=== PATIENT | male | born 1945 | race Caucasian/White ===

== ENCOUNTER 2024-03-02 18:31 | Inpatient (IN) | payer OTHER ==
[2024-03-02 20:22] LABS: BASO % 0.7 % (0-2.0); EOS % 0.7 % (0-4.5); HEMATOCRIT 29.7 % (35.4-49); HEMOGLOBIN 10.3 GM/dL (11.7-16.9); LYMPH % 3.4 % (8-40); MCH 32.3 pg (25.7-33.7); MCHC 34.7 g/dl (32.0-35.9); MEAN CELL VOLUME 93.2 fl (80-96); MEAN PLT VOLUME 7.4 fl (7.5-11.1); NEUT % 88.2 % (42.8-82.8); PLATELET COUNT 157 10^3/uL (134-434); RBC 3.19 M/mm3 (4.00-5.60); RDW 14.6 % (11.9-15.9); WHITE BLOOD COUNT 12.2 K/mm3 (4.0-10.0)
[2024-03-02 20:36] LABS: INR 0.96 (0.83-1.09)
[2024-03-02] MEDS ORDERED: ACETAMINOPHEN INJECTION 100 ML IVPB ONE (20:38)
[2024-03-02 20:39] LABS: ACTIVATED PTT 34.8 SECONDS (25.2-36.5)
[2024-03-02] MEDS: ACETAMINOPHEN 1000 MG/100 ML BAG IVPB ONE (20:44)
[2024-03-02 20:52] LABS: CALCIUM 8.6 mg/dL (8.5-10.1)
[2024-03-02 20:53] LABS: ALBUMIN 3.5 g/dl (3.4-5.0); BLOOD UREA NITROGEN 27.1 mg/dL (7-18)
[2024-03-02 20:56] LABS: CREATININE 1.5 mg/dL (0.55-1.3)
[2024-03-02 20:57] LABS: BILIRUBIN,TOTAL 1.3 mg/dL (0.2-1)
[2024-03-02 20:58] LABS: TOT PROT 6.6 g/dl (6.4-8.2)
[2024-03-03 08:54] LABS: BASO % 0.2 % (0-2.0); EOS % 0.1 % (0-4.5); HEMATOCRIT 26.8 % (35.4-49); HEMOGLOBIN 9.3 GM/dL (11.7-16.9); LYMPH % 4.3 % (8-40); MCH 32.6 pg (25.7-33.7); MCHC 34.9 g/dl (32.0-35.9); MEAN CELL VOLUME 93.6 fl (80-96); MEAN PLT VOLUME 7.5 fl (7.5-11.1); MONO % 9.4 % (3.8-10.2); PLATELET COUNT 145 10^3/uL (134-434); RBC 2.86 M/mm3 (4.00-5.60); RDW 14.5 % (11.9-15.9); WHITE BLOOD COUNT 10.8 K/mm3 (4.0-10.0)
[2024-03-03 09:01] LABS: POTASSIUM 4.8 mmol/L (3.5-5.1)
[2024-03-03 09:02] LABS: CALCIUM 8.3 mg/dL (8.5-10.1)
[2024-03-03 09:03] LABS: BLOOD UREA NITROGEN 30.4 mg/dL (7-18)
[2024-03-03 09:06] LABS: CREATININE 1.2 mg/dL (0.55-1.3)
[2024-03-03] MEDS ORDERED: ACETAMINOPHEN 325 MG TABLET (FP) ONE (10:54)
[2024-03-03] MEDS: EZETIMIBE 10 MG TABLET (FP) PO SCH (11:12)
[2024-03-03] MEDS: APIXABAN 5 MG TABLET PO SCH (11:12)
[2024-03-03] MEDS: LISINOPRIL 5 MG TABLET PO SCH (11:12)
[2024-03-03] MEDS: PANTOPRAZOLE 20 MG TABLET PO SCH (11:12)
[2024-03-03] MEDS: METOPROLOL TARTRATE 50 MG TABLET (FP) PO SCH (11:12)
[2024-03-03] MEDS: FOLIC ACID 1 MG TABLET (FP) PO SCH (11:12)
[2024-03-03] MEDS ORDERED: clonazePAM 0.5 MG TABLET ONE ×2 (11:14→11:30)
[2024-03-03] MEDS: clonazePAM 0.5 MG TABLET PO SCH (11:15)
[2024-03-03] MEDS: DEXTROSE 5%-0.45% SALINE 1,000 ML IV SCH (11:15)
[2024-03-03] MEDS: ACETAMINOPHEN 325 MG TABLET (FP) PO PRN (11:15)
[2024-03-03 15:28] LABS: EPI CELLS 3 /uL (0-25.1); HYALINE CASTS 1 /uL (0-3.1); URINE APPEARANCE CLEAR; URINE BACTERIA 3 /uL (0-1359); URINE BILIRUBIN NEGATIVE (NEGATIVE); URINE COLOR YELLOW; URINE GLUCOSE (UA) NEGATIVE (NEGATIVE); URINE KETONE 1+ (NEGATIVE); URINE LEUK ESTERASE NEGATIVE (NEGATIVE); URINE NITRITE NEGATIVE (NEGATIVE); URINE PROTEIN 1+ (NEGATIVE); URINE RBC 13 /uL (0-23.9); URINE WBC 4 /uL (0-25.8)
[2024-03-03] MEDS: ATORVASTATIN CA 80 MG TABLET (FP) PO SCH (22:18)
[2024-03-04 07:30] LABS: POTASSIUM 4.6 mmol/L (3.5-5.1)
[2024-03-04 07:31] LABS: CALCIUM 8.2 mg/dL (8.5-10.1)
[2024-03-04 07:32] LABS: BLOOD UREA NITROGEN 39.5 mg/dL (7-18)
[2024-03-04 07:35] LABS: CREATININE 1.5 mg/dL (0.55-1.3)
[2024-03-04 07:37] LABS: BILIRUBIN,TOTAL 1.7 mg/dL (0.2-1); TOT PROT 5.6 g/dl (6.4-8.2)
[2024-03-04] MEDS ORDERED: DEXTROSE 5%-0.45% SALINE 1,000 ML IV SCH (10:30)
[2024-03-04 11:50] LABS: BASO % 0.1 % (0-2.0); EOS % 0.1 % (0-4.5); HEMATOCRIT 24.1 % (35.4-49); HEMOGLOBIN 8.3 GM/dL (11.7-16.9); LYMPH % 5.6 % (8-40); MCH 31.8 pg (25.7-33.7); MCHC 34.2 g/dl (32.0-35.9); MEAN CELL VOLUME 92.9 fl (80-96); MEAN PLT VOLUME 7.8 fl (7.5-11.1); MONO % 12.4 % (3.8-10.2); NEUT % 81.8 % (42.8-82.8); PLATELET COUNT 161 10^3/uL (134-434); RDW 14.6 % (11.9-15.9); WHITE BLOOD COUNT 10.4 K/mm3 (4.0-10.0)
[2024-03-04 12:13] LABS: POTASSIUM 4.4 mmol/L (3.5-5.1)
[2024-03-04 12:14] LABS: CALCIUM 7.8 mg/dL (8.5-10.1)
[2024-03-04 12:15] LABS: BLOOD UREA NITROGEN 41.5 mg/dL (7-18)
[2024-03-04 12:18] LABS: CREATININE 1.5 mg/dL (0.55-1.3)
[2024-03-04 14:00] VITALS: BMI 21.5
[2024-03-04 19:15] LABS: BASO % 0.2 % (0-2.0); EOS % 0.2 % (0-4.5); HEMATOCRIT 23.1 % (35.4-49); HEMOGLOBIN 7.8 GM/dL (11.7-16.9); MCH 31.7 pg (25.7-33.7); MCHC 33.8 g/dl (32.0-35.9); MEAN PLT VOLUME 7.7 fl (7.5-11.1); MONO % 11.6 % (3.8-10.2); PLATELET COUNT 152 10^3/uL (134-434); RBC 2.45 M/mm3 (4.00-5.60); RDW 14.8 % (11.9-15.9); WHITE BLOOD COUNT 12.1 K/mm3 (4.0-10.0)
[2024-03-04] MEDS ORDERED: ENOXAPARIN NA (PORCINE) 60 MG/0.6 ML DISP.SYRIN SQ SCH (22:00)
[2024-03-05 07:45] LABS: POTASSIUM 4.1 mmol/L (3.5-5.1)
[2024-03-05 07:51] LABS: BASO % 0.1 % (0-2.0); CALCIUM 8.2 mg/dL (8.5-10.1); EOS % 0.1 % (0-4.5); HEMATOCRIT 24.4 % (35.4-49); HEMOGLOBIN 8.3 GM/dL (11.7-16.9); LYMPH % 3.8 % (8-40); MCH 31.7 pg (25.7-33.7); MEAN CELL VOLUME 93.2 fl (80-96); MEAN PLT VOLUME 7.8 fl (7.5-11.1); MONO % 12.3 % (3.8-10.2); NEUT % 83.7 % (42.8-82.8); PLATELET COUNT 155 10^3/uL (134-434); RBC 2.62 M/mm3 (4.00-5.60); RDW 14.8 % (11.9-15.9); WHITE BLOOD COUNT 11.7 K/mm3 (4.0-10.0)
[2024-03-05 07:52] LABS: BLOOD UREA NITROGEN 46.6 mg/dL (7-18)
[2024-03-05 07:55] LABS: CREATININE 1.5 mg/dL (0.55-1.3)
[2024-03-05 17:49] LABS: BASO % 0.1 % (0-2.0); HEMATOCRIT 33.1 % (35.4-49); HEMOGLOBIN 11.1 GM/dL (11.7-16.9); LYMPH % 4.8 % (8-40); MCH 31.7 pg (25.7-33.7); MCHC 33.5 g/dl (32.0-35.9); MEAN CELL VOLUME 94.6 fl (80-96); MEAN PLT VOLUME 7.9 fl (7.5-11.1); MONO % 12.9 % (3.8-10.2); NEUT % 82.2 % (42.8-82.8); PLATELET COUNT 157 10^3/uL (134-434); RDW 14.5 % (11.9-15.9)
[2024-03-06 07:59] LABS: BASO % 0.2 % (0-2.0); EOS % 0.3 % (0-4.5); HEMATOCRIT 28.5 % (35.4-49); HEMOGLOBIN 9.8 GM/dL (11.7-16.9); LYMPH % 4.7 % (8-40); MCH 31.9 pg (25.7-33.7); MCHC 34.4 g/dl (32.0-35.9); MEAN CELL VOLUME 92.6 fl (80-96); MEAN PLT VOLUME 7.2 fl (7.5-11.1); MONO % 12.2 % (3.8-10.2); NEUT % 82.6 % (42.8-82.8); PLATELET COUNT 167 10^3/uL (134-434); RBC 3.07 M/mm3 (4.00-5.60); RDW 14.6 % (11.9-15.9)
[2024-03-06 08:15] LABS: POTASSIUM 3.9 mmol/L (3.5-5.1)
[2024-03-06 08:18] LABS: CALCIUM 8.2 mg/dL (8.5-10.1)
[2024-03-06 08:19] LABS: BLOOD UREA NITROGEN 42.7 mg/dL (7-18)
[2024-03-06 08:21] LABS: CREATININE 1.3 mg/dL (0.55-1.3)
[2024-03-06 08:23] LABS: BILIRUBIN,TOTAL 2.6 mg/dL (0.2-1)
[2024-03-06] MEDS: DEXTROSE 5%-0.45% SALINE 1,000 ML IV SCH (16:27)
[2024-03-06 20:26] LABS: EOS % 0.8 % (0-4.5); HEMOGLOBIN 10.2 GM/dL (11.7-16.9); LYMPH % 4.2 % (8-40); MCH 32.5 pg (25.7-33.7); MEAN CELL VOLUME 92.8 fl (80-96); MEAN PLT VOLUME 7.5 fl (7.5-11.1); MONO % 11.1 % (3.8-10.2); NEUT % 83.9 % (42.8-82.8); PLATELET COUNT 173 10^3/uL (134-434); RBC 3.13 M/mm3 (4.00-5.60); RDW 14.8 % (11.9-15.9); WHITE BLOOD COUNT 10.6 K/mm3 (4.0-10.0)
[2024-03-07 09:12] LABS: BASO % 0.1 % (0-2.0); HEMATOCRIT 28.9 % (35.4-49); HEMOGLOBIN 9.9 GM/dL (11.7-16.9); LYMPH % 4.7 % (8-40); MCH 31.6 pg (25.7-33.7); MCHC 34.2 g/dl (32.0-35.9); MEAN CELL VOLUME 92.4 fl (80-96); MEAN PLT VOLUME 7.5 fl (7.5-11.1); MONO % 10.4 % (3.8-10.2); NEUT % 83.8 % (42.8-82.8); PLATELET COUNT 194 10^3/uL (134-434); RBC 3.12 M/mm3 (4.00-5.60); RDW 14.4 % (11.9-15.9); WHITE BLOOD COUNT 11.5 K/mm3 (4.0-10.0)
[2024-03-07 09:55] LABS: CALCIUM 8.6 mg/dL (8.5-10.1)
[2024-03-07 09:57] LABS: BLOOD UREA NITROGEN 45.7 mg/dL (7-18)
[2024-03-07 09:59] LABS: CREATININE 1.3 mg/dL (0.55-1.3)
[2024-03-07] MEDS: APIXABAN 5 MG TABLET PO SCH (10:03)
[2024-03-07] MEDS: FUROSEMIDE 40 MG TABLET (FP) PO SCH (10:04)
[2024-03-08 14:46] VITALS: BP 105/63; PULSE 70; RESP 18; TEMP 98.5
== END 2024-03-08 14:58 | DRG 563 ==
LOC: JER 18:31 → JERBED 03-03 00:05 → OBSVTOIN 03-03 13:48 → J7W 03-03 17:33
PROVIDERS: ADMIT Internal Medicine; ATTEND Internal Medicine
DX: S42.291A Other displaced fracture of upper end of right humerus, initial encounter for closed fracture (principal); F84.0 Autistic disorder; I13.0 Hypertensive heart and chronic kidney disease with heart failure and stage 1 through stage 4 chronic kidney disease, or unspecified chronic kidney disease; I25.10 Atherosclerotic heart disease of native coronary artery without angina pectoris; E78.5 Hyperlipidemia, unspecified; I48.91 Unspecified atrial fibrillation; I50.9 Heart failure, unspecified; E10.22 Type 1 diabetes mellitus with diabetic chronic kidney disease; N18.30 Chronic kidney disease, stage 3 unspecified; R29.6 Repeated falls; I25.5 Ischemic cardiomyopathy; D50.0 Iron deficiency anemia secondary to blood loss (chronic); W00.9XXA Unspecified fall due to ice and snow, initial encounter; Y92.89 Other specified places as the place of occurrence of the external cause; Y99.9 Unspecified external cause status; Z95.1 Presence of aortocoronary bypass graft
CPT/HCPCS: 0241U-QW; 36415; 36430; 70450-TC; 71045-TC-FY; 72125-TC; 72170-TC-FY; 73030-TC-RT-FY; 73200-TC-RT; 76775-TC; 80048; 80053; 81003; 82550; 84484; 85025; 85610; 85730; 86850; 86870; 86880; 86900; 86901; 86902; 86922; 87086; 93005; 93010; 93306-TC; 99285-25; G0378; J0131; P9058

== ENCOUNTER 2024-03-12 13:38 | Emergency (ER) | payer OTHER, MEDICARE ==
[2024-03-12 13:59] VITALS: RESP 18; BMI 24.4
[2024-03-12 14:20] LABS: EPI CELLS 5 /uL (0-25.1); HYALINE CASTS 1 /uL (0-3.1); URINE APPEARANCE CLOUDY; URINE BACTERIA 13 /uL (0-1359); URINE BILIRUBIN 1+ (NEGATIVE); URINE COLOR ORANGE; URINE GLUCOSE (UA) NEGATIVE (NEGATIVE); URINE KETONE NEGATIVE (NEGATIVE); URINE LEUK ESTERASE 1+ (NEGATIVE); URINE NITRITE NEGATIVE (NEGATIVE); URINE PROTEIN 1+ (NEGATIVE); URINE RBC 8721 /uL (0-23.9); URINE WBC 83 /uL (0-25.8)
[2024-03-12 19:24] VITALS: BP 138/43; PULSE 90; TEMP 98.5
== END 2024-03-12 19:28 | disposition home or self-care (01) ==
LOC: JER 13:38
PROC: 0T9B70Z Drainage of Bladder with Drainage Device, Via Natural or Artificial Opening (ICD-10-PCS; principal; 2024-03-12)
DX: R33.9 Retention of urine, unspecified (principal)
CPT/HCPCS: 81003; 87086; 99283-25

== ENCOUNTER 2024-03-13 15:16 | Emergency (ER) | payer OTHER, MEDICARE ==
[2024-03-13 15:43] VITALS: BP 112/61; PULSE 82; RESP 16; TEMP 98.3; BMI 29.2
[2024-03-13 17:11] LABS: EPI CELLS 0 /uL (0-25.1); HYALINE CASTS 0 /uL (0-3.1); URINE APPEARANCE CLOUDY; URINE BACTERIA 0 /uL (0-1359); URINE BILIRUBIN 1+ (NEGATIVE); URINE COLOR RED; URINE GLUCOSE (UA) NEGATIVE (NEGATIVE); URINE KETONE NEGATIVE (NEGATIVE); URINE LEUK ESTERASE 1+ (NEGATIVE); URINE NITRITE NEGATIVE (NEGATIVE); URINE PROTEIN 3+ (NEGATIVE); URINE RBC 14575 /uL (0-23.9); URINE WBC 27 /uL (0-25.8)
[2024-03-13 18:01] LABS: BASO % 0.2 % (0-2.0); EOS % 0.8 % (0-4.5); HEMATOCRIT 28.1 % (35.4-49); HEMOGLOBIN 9.3 GM/dL (11.7-16.9); MCH 31.1 pg (25.7-33.7); MCHC 33.1 g/dl (32.0-35.9); MEAN CELL VOLUME 94.1 fl (80-96); MEAN PLT VOLUME 7.1 fl (7.5-11.1); MONO % 9.5 % (3.8-10.2); NEUT % 87.5 % (42.8-82.8); PLATELET COUNT 327 10^3/uL (134-434); RBC 2.99 M/mm3 (4.00-5.60); RDW 14.9 % (11.9-15.9); WHITE BLOOD COUNT 15.5 K/mm3 (4.0-10.0)
[2024-03-13] MEDS: LIDOCAINE HCL 2% JELLY 10 ML CARTRIDGE UR ONE (18:30)
== END 2024-03-13 21:55 ==
LOC: JER 15:16
PROC: 0T2BX0Z Change Drainage Device in Bladder, External Approach (ICD-10-PCS; principal; 2024-03-13)
DX: R31.0 Gross hematuria (principal); R33.9 Retention of urine, unspecified
CPT/HCPCS: 36415; 81003; 85025; 87086; 99283-25

== ENCOUNTER 2025-02-07 12:17 | Inpatient (IN) | payer OTHER, MEDICARE ==
[2025-02-07 13:31] LABS: BASOPHILS # 0.01 x10^3/uL (0.01-0.08); EOSINOPHIL % 0.2 % (0.8-7.0); EOSINOPHILS # 0.01 x10^3/uL (0.04-0.54)
[2025-02-07 13:32] LABS: ABSOLUTE IMMATURE GRANULOCYTES 0.02 x10^3/uL (0.0-0.031); HEMATOCRIT 18.5 % (40.1-51.0); HEMOGLOBIN 5.1 g/dL (13.7-17.5); MCHC 27.6 g/dl (32.3-36.5); MEAN CELL VOLUME 91.6 fl (79.0-92.2); MEAN PLT VOLUME 11.5 fl (9.4-12.4); MONOCYTE # 0.52 x10^3/uL (0.30-0.82); MONOCYTE % 12.4 % (5.3-12.2); PLATELET COUNT 119 x10^3/uL (163-337)
[2025-02-07 13:38] LABS: INR 2.79 (0.83-1.09); PROTHROMBIN TIME (PATIENT) 30.4 SEC (9.7-13.0)
[2025-02-07 13:41] LABS: ACTIVATED PTT 41.8 SECONDS (25.2-36.5)
[2025-02-07 13:53] LABS: POTASSIUM 3.9 mmol/L (3.5-5.1)
[2025-02-07 13:57] LABS: CALCIUM 9.1 mg/dL (8.5-10.1)
[2025-02-07 13:58] LABS: BLOOD UREA NITROGEN 46.2 mg/dL (7-18)
[2025-02-07 14:01] LABS: CREATININE 1.6 mg/dL (0.55-1.3)
[2025-02-07 14:02] LABS: BILIRUBIN,TOTAL 1.5 mg/dL (0.2-1); TOT PROT 5.8 g/dl (6.4-8.2)
[2025-02-07 18:40] VITALS: RESP 18
[2025-02-07 22:02] LABS: HEMOGLOBIN 6.7 g/dL (13.7-17.5)
[2025-02-07 22:04] LABS: HEMATOCRIT 23.3 % (40.1-51.0); MCHC 28.8 g/dl (32.3-36.5); MEAN CELL VOLUME 89.6 fl (79.0-92.2); MEAN PLT VOLUME 11.3 fl (9.4-12.4); PLATELET COUNT 111 x10^3/uL (163-337); RDW 16.3 % (12.2-16.6)
[2025-02-07] MEDS: TAMSULOSIN HCL 0.4 MG CAP PO SCH (22:41)
[2025-02-07] MEDS: ATORVASTATIN CA 80 MG TABLET (FP) PO SCH (22:41)
[2025-02-07] MEDS: PANTOPRAZOLE SODIUM 40 MG VIAL IVPUSH SCH (22:41)
[2025-02-07] MEDS: MIRTAZAPINE 15 MG TABLET (FP) PO SCH (22:41)
[2025-02-08 07:43] LABS: HEMOGLOBIN 8.3 g/dL (13.7-17.5); MCHC 30.7 g/dl (32.3-36.5); MEAN CELL VOLUME 86.8 fl (79.0-92.2); MEAN PLT VOLUME 11.5 fl (9.4-12.4); PLATELET COUNT 126 x10^3/uL (163-337); RDW 16.3 % (12.2-16.6)
[2025-02-08 08:04] LABS: POTASSIUM 4.1 mmol/L (3.5-5.1)
[2025-02-08 08:43] LABS: ALBUMIN 2.9 g/dl (3.4-5.0); CALCIUM 9.1 mg/dL (8.5-10.1)
[2025-02-08 08:46] LABS: PHOSPHOROUS 4.4 mg/dL (2.5-4.9)
[2025-02-08 08:47] LABS: BILIRUBIN,TOTAL 3.3 mg/dL (0.2-1); CREATININE 1.5 mg/dL (0.55-1.3); TOT PROT 5.5 g/dl (6.4-8.2)
[2025-02-08 09:01] LABS: MAGNESIUM 2.7 mg/dL (1.8-2.4)
[2025-02-08] MEDS: FINASTERIDE 5 MG TABLET (FP) PO SCH (09:53)
[2025-02-08] MEDS: EZETIMIBE 10 MG TABLET (FP) PO SCH (11:10)
[2025-02-08 12:15] LABS: BILIRUBIN,DIRECT 0.7 mg/dL (0.0-0.2)
[2025-02-08] MEDS: PHYTONADIONE 10 MG/1 ML AMP IVPB ONE (12:58)
[2025-02-08 13:51] LABS: INR 1.66 (0.83-1.09); PROTHROMBIN TIME (PATIENT) 18.3 SEC (9.7-13.0)
[2025-02-08 14:47] VITALS: TEMP 97.3
[2025-02-08 16:03] VITALS: BMI 15.5
[2025-02-08 20:17] VITALS: BP 116/66; PULSE 75
[2025-02-08] MEDS ORDERED: EZETIMIBE 10 MG TABLET (FP) PO SCH (22:00)
== END 2025-02-08 20:00 | disposition short-term general hospital (02) | DRG 812 ==
LOC: JER 12:17 → JERBED 14:45 → J7W 21:55
PROVIDERS: ATTEND Internal Medicine
PROC: 30233N1 Transfusion of Nonautologous Red Blood Cells into Peripheral Vein, Percutaneous Approach (ICD-10-PCS; principal; 2025-02-07)
DX: D64.9 Anemia, unspecified (principal); I50.22 Chronic systolic (congestive) heart failure; I13.0 Hypertensive heart and chronic kidney disease with heart failure and stage 1 through stage 4 chronic kidney disease, or unspecified chronic kidney disease; F84.0 Autistic disorder; Z68.1 Body mass index [BMI] 19.9 or less, adult; D69.6 Thrombocytopenia, unspecified; I25.10 Atherosclerotic heart disease of native coronary artery without angina pectoris; N18.9 Chronic kidney disease, unspecified; E78.5 Hyperlipidemia, unspecified; N40.0 Benign prostatic hyperplasia without lower urinary tract symptoms; K74.60 Unspecified cirrhosis of liver; N18.30 Chronic kidney disease, stage 3 unspecified; E61.1 Iron deficiency; Z95.810 Presence of automatic (implantable) cardiac defibrillator
CPT/HCPCS: 36415; 36430; 71045-TC-FY; 76705-TC; 80053; 82248; 82272; 82728; 82977; 83540; 83550; 83735; 84100; 85025; 85027; 85610; 85730; 86850; 86870; 86880; 86900; 86901; 86902; 86922; 93005; 93010; 99285-25; P9038; P9058

== ENCOUNTER 2025-02-27 10:50 | Inpatient (IN) | payer OTHER, MEDICARE ==
[2025-02-27 12:01] LABS: BG HCT 22.0 % (35.4-49); VENOUS BASE EXCESS -0.6 mmol/L (-2-2); VENOUS O2 SATURATION 60.1 % (70-80); VENOUS PCO2 43.8 mmHg (38-52); VENOUS PH 7.369 (7.310-7.410)
[2025-02-27 12:11] LABS: BASOPHILS # 0.01 x10^3/uL (0.01-0.08); EOSINOPHILS # 0.05 x10^3/uL (0.04-0.54)
[2025-02-27 12:12] LABS: ABSOLUTE IMMATURE GRANULOCYTES 0.02 x10^3/uL (0.0-0.031); EOSINOPHIL % 0.9 % (0.8-7.0); IMMATURE PLATELET FRACTION # 3.00 x10^3/uL; MCHC 29.1 g/dl (32.3-36.5); MEAN CELL VOLUME 100.9 fl (79.0-92.2); MEAN PLT VOLUME 11.7 fl (9.4-12.4); MONOCYTE # 0.46 x10^3/uL (0.30-0.82); MONOCYTE % 8.0 % (5.3-12.2); RDW 22.8 % (12.2-16.6)
[2025-02-27 12:18] LABS: INR 2.25 (0.83-1.09); PROTHROMBIN TIME (PATIENT) 24.5 SEC (9.7-13.0)
[2025-02-27 12:21] LABS: ACTIVATED PTT 44.8 SECONDS (25.2-36.5)
[2025-02-27 12:52] LABS: CO2 26.0 mmol/L (21-32); GLUCOSE,RANDOM 149.0 mg/dL (74-106)
[2025-02-27 12:55] LABS: CREATININE 1.6 mg/dL (0.55-1.3); SGOT/AST 54.0 U/L (15-37); SGPT/ALT 59.0 U/L (13-61)
[2025-02-27 12:56] LABS: TOT PROT 5.4 g/dl (6.4-8.2)
[2025-02-27 12:58] LABS: ALK PHOS 217.0 U/L (45-117)
[2025-02-27 14:41] LABS: EPI CELLS 7 /uL (0-25.1); HYALINE CASTS 0 /uL (0-3.1); URINE APPEARANCE CLEAR; URINE BACTERIA 1 /uL (0-1359); URINE BILIRUBIN NEGATIVE (NEGATIVE); URINE COLOR YELLOW; URINE GLUCOSE (UA) NEGATIVE (NEGATIVE); URINE KETONE NEGATIVE (NEGATIVE); URINE LEUK ESTERASE NEGATIVE (NEGATIVE); URINE NITRITE NEGATIVE (NEGATIVE); URINE PROTEIN 1+ (NEGATIVE); URINE RBC 4 /uL (0-23.9); URINE UROBILINOGEN 4.0 E.U/dl mg/dL (0.2-1.0); URINE WBC 1 /uL (0-25.8)
[2025-02-27 14:47] LABS: EPI CELLS 4 /uL (0-25.1); HYALINE CASTS 0 /uL (0-3.1); URINE APPEARANCE CLEAR; URINE BACTERIA 28 /uL (0-1359); URINE BILIRUBIN NEGATIVE (NEGATIVE); URINE COLOR YELLOW; URINE GLUCOSE (UA) NEGATIVE (NEGATIVE); URINE KETONE NEGATIVE (NEGATIVE); URINE LEUK ESTERASE TRACE (NEGATIVE); URINE NITRITE NEGATIVE (NEGATIVE); URINE PROTEIN 2+ (NEGATIVE); URINE RBC 16 /uL (0-23.9); URINE UROBILINOGEN 4.0 E.U/dl mg/dL (0.2-1.0); URINE WBC 11 /uL (0-25.8)
[2025-02-27 16:59] LABS: MEAN CELL VOLUME 98.0 fl (79.0-92.2)
[2025-02-27 17:03] LABS: ABSOLUTE IMMATURE GRANULOCYTES 0.02 x10^3/uL (0.0-0.031); BASOPHILS # 0.00 x10^3/uL (0.01-0.08); EOSINOPHIL % 0.2 % (0.8-7.0); EOSINOPHILS # 0.01 x10^3/uL (0.04-0.54); MCHC 30.2 g/dl (32.3-36.5); MONOCYTE # 0.42 x10^3/uL (0.30-0.82); MONOCYTE % 8.2 % (5.3-12.2); RDW 21.7 % (12.2-16.6)
[2025-02-27 17:07] LABS: MEAN PLT VOLUME 11.4 fl (9.4-12.4)
[2025-02-27] MEDS ORDERED: TAMSULOSIN HCL 0.4 MG CAP PO SCH (22:00)
[2025-02-27] MEDS: PANTOPRAZOLE 40 MG TABLET PO SCH (22:15)
[2025-02-27 22:54] LABS: MEAN CELL VOLUME 94.8 fl (79.0-92.2); RDW 21.0 % (12.2-16.6)
[2025-02-27 22:55] LABS: IMMATURE PLATELET FRACTION # 3.40 x10^3/uL; MCHC 30.8 g/dl (32.3-36.5); MEAN PLT VOLUME 11.7 fl (9.4-12.4)
[2025-02-28 00:52] LABS: N-TERMINAL BNP 7685.9 pg/ml (5-450)
[2025-02-28 07:06] LABS: BASOPHILS # 0.01 x10^3/uL (0.01-0.08); EOSINOPHIL % 0.5 % (0.8-7.0); EOSINOPHILS # 0.03 x10^3/uL (0.04-0.54); MONOCYTE % 9.7 % (5.3-12.2)
[2025-02-28 07:08] LABS: ABSOLUTE IMMATURE GRANULOCYTES 0.03 x10^3/uL (0.0-0.031); IMMATURE PLATELET FRACTION # 2.30 x10^3/uL; MCHC 30.8 g/dl (32.3-36.5); MEAN CELL VOLUME 94.1 fl (79.0-92.2); MEAN PLT VOLUME 11.8 fl (9.4-12.4); MONOCYTE # 0.60 x10^3/uL (0.30-0.82); RDW 21.3 % (12.2-16.6)
[2025-02-28 07:39] LABS: CO2 24 mmol/L (21-32); GLUCOSE,RANDOM 89 mg/dL (74-106)
[2025-02-28 07:42] LABS: CREATININE 1.3 mg/dL (0.55-1.3); SGOT/AST 48 U/L (15-37); SGPT/ALT 54 U/L (13-61)
[2025-02-28 07:44] LABS: TOT PROT 5.3 g/dl (6.4-8.2)
[2025-02-28 07:45] LABS: ALK PHOS 217 U/L (45-117)
[2025-02-28] MEDS: ATORVASTATIN CA 80 MG TABLET (FP) PO SCH ×2 (09:36→21:17)
[2025-02-28] MEDS: EZETIMIBE 10 MG TABLET (FP) PO SCH (09:36)
[2025-02-28] MEDS: PANTOPRAZOLE SODIUM 40 MG VIAL IVPUSH SCH (09:36)
[2025-02-28] MEDS: PREGABALIN 50 MG CAPSULE PO SCH (09:36)
[2025-02-28] MEDS: TAMSULOSIN HCL 0.4 MG CAP PO SCH (09:36)
[2025-02-28] MEDS ORDERED: LISINOPRIL 5 MG TABLET PO SCH (10:00)
[2025-02-28] MEDS: PHYTONADIONE 10 MG/1 ML AMP IVPB ONE (11:48)
[2025-02-28 11:51] LABS: LDH 206 U/L (87-246)
[2025-02-28 14:10] VITALS: BMI 18.6
[2025-03-01 01:14] LABS: HCV DIAGNOSTIC IN-HOUSE W/RFLX NON-REACTIVE (NONREACTIVE)
[2025-03-01 01:15] LABS: HIV INTERPRETATION NEGATIVE (NEGATIVE)
[2025-03-01 08:05] LABS: ABSOLUTE IMMATURE GRANULOCYTES 0.02 x10^3/uL (0.0-0.031); BASOPHILS # 0.01 x10^3/uL (0.01-0.08); EOSINOPHIL % 1.2 % (0.8-7.0); EOSINOPHILS # 0.07 x10^3/uL (0.04-0.54); MCHC 29.8 g/dl (32.3-36.5); MEAN CELL VOLUME 96.8 fl (79.0-92.2); MEAN PLT VOLUME 11.3 fl (9.4-12.4); MONOCYTE # 0.56 x10^3/uL (0.30-0.82); MONOCYTE % 9.6 % (5.3-12.2); RDW 21.7 % (12.2-16.6)
[2025-03-01 08:33] LABS: CO2 23.0 mmol/L (21-32); GLUCOSE,RANDOM 101.0 mg/dL (74-106)
[2025-03-01 08:36] LABS: CREATININE 1.0 mg/dL (0.55-1.3)
[2025-03-01] MEDS: TAMSULOSIN HCL 0.4 MG CAP PO SCH (11:00)
[2025-03-01] MEDS: PANTOPRAZOLE 40 MG TABLET PO SCH (11:00)
[2025-03-01] MEDS: FINASTERIDE 5 MG TABLET (FP) PO SCH (11:00)
[2025-03-01 12:12] LABS: HEPATITIS B SURF AG NON-MATERN NON-REACTIVE (NONREACTIVE)
[2025-03-01 12:40] LABS: HIV INTERPRETATION NEGATIVE (NEGATIVE)
[2025-03-01 12:41] LABS: HCV DIAGNOSTIC IN-HOUSE W/RFLX NON-REACTIVE (NONREACTIVE)
[2025-03-01 13:35] LABS: LDH 196.0 U/L (87-246)
[2025-03-01 20:00] VITALS: BP 110/66; PULSE 69; RESP 16; TEMP 97.7
[2025-03-01] MEDS ORDERED: METOPROLOL TARTRATE 25 MG TABLET (FP) PO SCH (22:00)
== END 2025-03-01 20:19 | disposition short-term general hospital (02) | DRG 378 ==
LOC: JER 10:50 → JERBED 15:52 → J4W 20:44
PROVIDERS: ADMIT Internal Medicine; ATTEND Internal Medicine
PROC: 30233N1 Transfusion of Nonautologous Red Blood Cells into Peripheral Vein, Percutaneous Approach (ICD-10-PCS; principal; 2025-02-27)
DX: K92.2 Gastrointestinal hemorrhage, unspecified (principal); D62 Acute posthemorrhagic anemia; F84.0 Autistic disorder; I13.0 Hypertensive heart and chronic kidney disease with heart failure and stage 1 through stage 4 chronic kidney disease, or unspecified chronic kidney disease; I48.20 Chronic atrial fibrillation, unspecified; Z68.1 Body mass index [BMI] 19.9 or less, adult; N17.9 Acute kidney failure, unspecified; D68.9 Coagulation defect, unspecified; I50.22 Chronic systolic (congestive) heart failure; R18.8 Other ascites; N18.30 Chronic kidney disease, stage 3 unspecified; E10.22 Type 1 diabetes mellitus with diabetic chronic kidney disease; E03.9 Hypothyroidism, unspecified; D69.6 Thrombocytopenia, unspecified; E78.5 Hyperlipidemia, unspecified; I25.10 Atherosclerotic heart disease of native coronary artery without angina pectoris; R33.9 Retention of urine, unspecified; K74.60 Unspecified cirrhosis of liver; E88.09 Other disorders of plasma-protein metabolism, not elsewhere classified; I48.91 Unspecified atrial fibrillation
CPT/HCPCS: 36415; 36430; 71045-TC-FY; 74178-TC; 80048; 80053; 81003; 82248; 82550; 82607; 82746; 82803; 82962; 82977; 83010; 83036; 83615; 83735; 83880; 84100; 84439; 84443; 84484; 85025; 85027; 85610; 85730; 86704; 86708; 86803; 86850; 86870; 86880; 86900; 86901; 86902; 86922; 87040; 87086; 87340; 87389; 87517; 93005; 93010; 93306-TC; 93970-TC; 97116-GP; 97162-GP; 99291; P9058